=== PATIENT | male | born 1990 | race Two or more races ===

== ENCOUNTER 2017-04-21 19:19 | Emergency (ER) | payer MEDICAID ==
[~2017-04-21] VITALS: Ht 175.3 cm; Wt 83.9 kg
[2017-04-21 19:44] VITALS: BP 159/94
== END 2017-04-21 20:55 | disposition left against medical advice (07) ==
LOC: ER 19:24
DX: R36.9 Urethral discharge, unspecified (principal); Z53.21 Procedure and treatment not carried out due to patient leaving prior to being seen by health care provider

== ENCOUNTER 2021-04-28 14:03 | Inpatient (IN) | payer MEDICAID ==
[~2021-04-28] VITALS: Ht 175.3 cm; Wt 84.3 kg
[2021-04-28] MEDS ORDERED: cefTRIAXone 1GM/50ML D5W 50 ML IV ONE (14:30)
[2021-04-28] MEDS ORDERED: FUROSEMIDE 40 MG/4 ML VIAL IV ONE (14:30)
[2021-04-28] MEDS ORDERED: CLINDAMYCIN 600MG IV 50 ML IV ONE (14:30)
[2021-04-28 15:21] LABS: Hematocrit 52.7 % (41.0-53.0); Hemoglobin 17.6 g/dL (13.5-17.5); Mean Corpuscular Hemoglobin 31.7 pg (28.0-32.0); Mean Corpuscular Hgb Conc. 33.5 g/dL (32.0-36.0); Mean Corpuscular Volume 94.8 fL (80.0-100.0); Red Blood Cells 5.56 10^6/uL (4.5-5.90); Red Cell Distribution Width 17.5 % (11.8-14.3); White Blood Cell 13.2 10^3/uL (4.4-10.8)
[2021-04-28 15:27] LABS: Basophils % (manual) 0 (0.0-2.0); Blast Cells 0; Promyelocytes % 0; Reactive Lymphocytes 0
[2021-04-28 15:40] LABS: INR 1.38 (0.9-1.15); Partial Thromboplastin Time 30.8 sec (23.6-33.0)
[2021-04-28 16:44] LABS: Band Neutrophils % (manual) 6; Eosinophils % (manual) 1 (0-7); Lymphocytes % (manual) 8 (10.0-50.0); Metamyelocytes % 1; Monocytes % (manual) 11 (0-12); Myelocytes % 1
[2021-04-28 17:27] LABS: Albumin 2.1 g/dL (3.4-5.0); Calcium 7.9 mg/dL (8.5-10.1); Potassium 3.6 mmol/L (3.5-5.1)
[2021-04-28 17:30] LABS: BUN/Creatinine Ratio 15.6; Bilirubin, Total 4.3 mg/dL (0.2-1.0)
[2021-04-28] MEDS ORDERED: ACETAMINOPHEN 325 MG TAB PO PRN (21:15)
[2021-04-28] MEDS ORDERED: ONDANSETRON HCL 4 MG/2 ML VIAL IV PRN (21:15)
[2021-04-28] MEDS ORDERED: NITROGLYCERIN 0.4 MG SL TAB SL PRN (21:15)
[2021-04-28] MEDS ORDERED: HYDROcodone-ACET 5/325MG TAB PO PRN (21:15)
[2021-04-28] MEDS ORDERED: MORPHINE SULFATE INJECTION 2 MG/ML SYRG IV PRN (21:15)
[2021-04-28] MEDS ORDERED: CARVEDILOL 3.125 MG TAB PO SCH (22:00)
[2021-04-28] MEDS ORDERED: TEMAZEPAM 15 MG CAP PO PRN (22:00)
[2021-04-28] MEDS ORDERED: ATORVASTATIN 20 MG TAB PO SCH (22:00)
[2021-04-28] MEDS ORDERED: CLINDAMYCIN 600MG IV 50 ML IV SCH (22:00)
[2021-04-28] MEDS ORDERED: SACUBITRIL-VALSARTAN 24mg/26mg TAB PO SCH (22:00)
[2021-04-29] MEDS ORDERED: ONDANSETRON HCL 4 MG/2 ML VIAL IV PRN (01:45)
[2021-04-29 05:30] VITALS: BP 145/59
[2021-04-29] MEDS ORDERED: SACU1TAB PO (05:33)
[2021-04-29] MEDS ORDERED: FLUT1AER3 PO (05:33)
[2021-04-29] MEDS ORDERED: FURO40TA4 PO (05:51)
[2021-04-29] MEDS ORDERED: CARV3.1240 PO (05:51)
[2021-04-29] MEDS ORDERED: POTA8TAB2 PO (05:51)
[2021-04-29] MEDS ORDERED: FUROSEMIDE 40 MG TAB PO SCH (06:00)
[2021-04-29] MEDS: CLINDAMYCIN 900MG IV 50 ML IV SCH ×2 (06:30→13:36)
[2021-04-29 08:00] VITALS: BP 123/82
[2021-04-29] MEDS ORDERED: cefTRIAXone 1GM/50ML D5W 50 ML IV SCH (09:00)
[2021-04-29 09:08] LABS: Calcium 8.4 mg/dL (8.5-10.1); Potassium 3.6 mmol/L (3.5-5.1)
[2021-04-29] MEDS: CARVEDILOL 3.125 MG TAB PO SCH ×2 (09:35→22:10)
[2021-04-29] MEDS: ENOXAPARIN SOD 40 MG/0.4 ML SYRINGE SC SCH (09:36)
[2021-04-29] MEDS ORDERED: ENOXAPARIN SOD 40 MG/0.4 ML SYRINGE SC SCH (10:00)
[2021-04-29] MEDS ORDERED: levoFLOXacin 500MG 100 ML IV SCH (10:00)
[2021-04-29] MEDS ORDERED: LISINOPRIL 5 MG TAB PO SCH (10:00)
[2021-04-29] MEDS: FUROSEMIDE 40 MG/4 ML VIAL IV SCH ×2 (11:08→17:27)
[2021-04-29 12:00] VITALS: BP 113/77
[2021-04-29 16:00] VITALS: BP 100/54
[2021-04-29] MEDS: PENICILLIN G POTASSIUM 3,000,000 UNITS in D5W 5% 50 ML IV SCH ×2 (17:28→23:52)
[2021-04-29] MEDS ORDERED: HYDROcodone-ACET 5/325MG TAB PO PRN (21:15)
[2021-04-29] MEDS ORDERED: DOCUSATE SOD 100 MG CAP PO PRN (21:15)
[2021-04-29 22:00] VITALS: BP 100/64
[2021-04-29] MEDS: ATORVASTATIN 20 MG TAB PO SCH (22:09)
[2021-04-30] MEDS ORDERED: diphenhdrAMINE HCL 50 MG/1 ML VL IV ONE (01:30)
[2021-04-30 05:00] VITALS: BP 104/61
[2021-04-30 05:17] LABS: Basophils # (auto) 0.1 10 ^3/uL (0-0.2); Eosinophils # (auto) 0.1 10 ^3/uL (0-0.8); Eosinophils % (auto) 1.5 % (0.0-7.0); Hematocrit 45.7 % (41.0-53.0); Hemoglobin 15.5 g/dL (13.5-17.5); Lymphocytes # (auto) 1.2 10 ^3/uL (0.4-5.4); Lymphocytes % (auto) 11.8 % (10.0-50.0); Mean Corpuscular Hgb Conc. 33.8 g/dL (32.0-36.0); Mean Corpuscular Volume 94.7 fL (80.0-100.0); Monocytes # (auto) 0.8 10 ^3/uL (0-1.3); Monocytes % (auto) 8.1 % (0.0-12.0); Neutrophils # (auto) 7.8 10 ^3/uL (1.6-8.6); Neutrophils % (auto) 77.6 % (37.0-80.0); Nucleated Red Blood Cells % 0.1 %; Red Blood Cells 4.83 10^6/uL (4.5-5.90); Red Cell Distribution Width 17.4 % (11.8-14.3)
[2021-04-30] MEDS: PENICILLIN G POTASSIUM 3,000,000 UNITS in D5W 5% 50 ML IV SCH ×4 (06:00→23:56)
[2021-04-30] MEDS: FUROSEMIDE 40 MG/4 ML VIAL IV SCH ×2 (06:19→18:14)
[2021-04-30 09:00] VITALS: BP 114/68
[2021-04-30] MEDS: CARVEDILOL 3.125 MG TAB PO SCH ×2 (10:04→21:41)
[2021-04-30] MEDS: ENOXAPARIN SOD 40 MG/0.4 ML SYRINGE SC SCH (10:05)
[2021-04-30 11:43] LABS: Hepatitis A Ab IgM Negative; Hepatitis B Core IgM Negative; Hepatitis C Antibody Negative (Negative)
[2021-04-30 13:00] VITALS: BP 98/59
[2021-04-30 17:00] VITALS: BP 101/66
[2021-04-30 19:53] LABS: Alcohol, Urine < 3.0 mg/dL (0-10); Amphetamine Screen, Urine NEGATIVE (NEGATIVE); Barbiturate Scree,Urine NEGATIVE (NEGATIVE); Benzodiazephine Screen, Urine NEGATIVE (NEGATIVE); Cannabinoid Screen, Urine POSITIVE (NEGATIVE); Cocaine Screen, Urine NEGATIVE (NEGATIVE); Opiate Scree,Urine NEGATIVE (NEGATIVE); Phencyclidine Screen, Urine NEGATIVE (NEGATIVE)
[2021-04-30] MEDS: ATORVASTATIN 20 MG TAB PO SCH (21:41)
[2021-04-30 22:00] VITALS: BP 120/67
[2021-05-01 05:00] VITALS: BP 110/69
[2021-05-01] MEDS: FUROSEMIDE 40 MG/4 ML VIAL IV SCH (06:28)
[2021-05-01] MEDS: PENICILLIN G POTASSIUM 3,000,000 UNITS in D5W 5% 50 ML IV SCH ×2 (06:29→12:54)
[2021-05-01 09:00] VITALS: BP 120/76
[2021-05-01] MEDS: ENOXAPARIN SOD 40 MG/0.4 ML SYRINGE SC SCH (09:59)
[2021-05-01] MEDS: CARVEDILOL 3.125 MG TAB PO SCH (10:00)
[2021-05-01 13:00] VITALS: BP 100/52
[2021-05-01] MEDS ORDERED: AMOX500C2 PO (14:30)
[2021-05-01 15:27] VITALS: BP 120/76
== END 2021-05-01 18:23 | disposition home or self-care (01) | DRG 383 ==
LOC: ER 14:03 → OVERFLOW 21:04 → WEST WING 23:40 → TELE-WESTW 04-29 08:26
PROVIDERS: ADMIT Nurse Practitioner; ATTEND Internal Medicine
DX: L03.115 Cellulitis of right lower limb (principal); I50.21 Acute systolic (congestive) heart failure; I42.0 Dilated cardiomyopathy; E88.09 Other disorders of plasma-protein metabolism, not elsewhere classified; I11.0 Hypertensive heart disease with heart failure; F17.210 Nicotine dependence, cigarettes, uncomplicated; F19.90 Other psychoactive substance use, unspecified, uncomplicated; Z20.822 Contact with and (suspected) exposure to COVID-19; J44.9 Chronic obstructive pulmonary disease, unspecified; Z91.19 Patient's noncompliance with other medical treatment and regimen; Z95.810 Presence of automatic (implantable) cardiac defibrillator; Z71.6 Tobacco abuse counseling
CPT/HCPCS: 36415; 71045; 73700; 80048; 80053; 80074; 80307; 83605; 83880; 84484; 85007; 85025; 85027; 85610; 85730; 87040; 87081; 87426; 93005; 93926; 93971; 96365; 96368; 96375; G0378; J0696; J1956; J2405; J3490; J7060

== ENCOUNTER 2024-12-13 17:00 | Inpatient (IN) | payer MEDICAID ==
[~2024-12-13] VITALS: Ht 175.3 cm; Wt 113.0 kg
[~2024-12-13 17:00] MED LIST: AMOX500C2 PO; CARV3.1240 PO; FLUT1AER3 PO; FURO40TA4 PO; POTA8TAB38 PO; SACU1TAB PO
[2024-12-13 17:36] LABS: Hematocrit 45.0 % (41.0-53.0); Hemoglobin 15.2 g/dL (13.5-17.5); Mean Corpuscular Hemoglobin 31.3 pg (28.0-32.0); Mean Corpuscular Volume 92.7 fL (80.0-100.0); Nucleated Red Blood Cells % 0.3 %
[2024-12-13 17:47] LABS: Chloride 102 mmol/L (98-107); Sodium 138 mmol/L (136-145)
[2024-12-13 17:48] LABS: Anion Gap 13 (5-15); Carbon Dioxide 23 mmol/L (20-31); Potassium 3.0 mmol/L (3.5-5.1)
[2024-12-13 17:49] LABS: Calcium 9.0 mg/dL (8.7-10.4)
[2024-12-13 17:54] LABS: BUN/Creatinine Ratio 11.8 (10.0-20.0); Blood Urea Nitrogen 13 mg/dL (9-23)
--- NOTE | 2024-12-13 17:57 | DVH ---
CHEST RADIOGRAPH Indication: sob Technique: Single frontal view of the chest was obtained COMPARISON: CHEST PORTABLE on DOS: 04/28/21 FINDINGS: Lines and Tubes: Left chest AICD Lungs: Congestion Pleura: No effusion. No pneumothorax. Cardiomediastinal contours: Cardiomegaly Bones: Unremarkable IMPRESSION: Increased interstital prominence. This may represent pulmonary vascular congestion and/or viral pneum onia. Clinical correlation advised.
[2024-12-13 18:14] LABS: Glucose 138 mg/dL (74-106)
[2024-12-13 18:40] LABS: Albumin 3.8 g/dL (3.2-4.8); Total Protein 7.2 g/dL (5.7-8.2)
[2024-12-13 18:44] LABS: Alanine Aminotransferase 48.0 U/L (7-40); Alkaline Phosphatase 298.0 U/L (46-116); Bilirubin, Direct 2.1 mg/dL (<0.3); Bilirubin, Total 3.5 mg/dL (0.2-1.0); Magnesium 1.4 mg/dL (1.6-2.6)
--- NOTE | 2024-12-13 19:16 | ED.PDOC ---
HPI Comments This is a 34-year-old male with past medical history of HFrEF (drug-induced, status post ICD), came to the hospital due to generalized body swelling. Per patient, he has not been taking his medicine for 2 months and gradually has developed bilateral lower limb and abdominal distention. He also reports shortness of breaths, chest discomfort, and inability to pass urine for 2 days. He denies fever, cough, nausea, vomiting, or any bowel habit changes. Home meds: Lasix, Entresto, Jardiance, carvedilol, and aspirin. Per patient he has not been taking has been since 2 months. Social: Smokes weed, cocaine and methamphetamine Chief Complaint: General Weakness Time Seen by MD: 17:27 Primary Care Provider: SHAY Malone Notes: Nurses Notes Allergies: Coded Allergies: NO KNOWN ALLERGIES (Unverified , 04/21/17) Home Meds Active Scripts Amoxicillin Trihydrate (Amoxicillin) 500 Mg Cap, 500 MG PO TID for 5 Days, #15 CAP Prov:PATRICIA MORATAYA MD 05/01/21 Reported Medications Carvedilol (Carvedilol) 3.125 Mg Tab, 1 TAB PO BID 04/29/21 Potassium Chloride (Klor-Con 8) 8 Meq Tab, 1 TAB PO BID 04/29/21 Furosemide (Furosemide) 40 Mg Tab, 1 TAB PO BID 04/29/21 Myzfphxzwdi-Imqpicdqwpjp-Civbh (Trelegy Ellipta 100-62.5-25 Mcg/INH) 1 Aer Aer, 1 PUFF PO DAILYPRN 04/29/21 Sacubitril-Valsartan (Entresto 24-26 mg) 1 Tab Tab, 1 TAB PO BID 04/29/21 Mode of Arrival: Ambulatory Past Medical History PAST MEDICAL HISTORY: CHF, HTN Surgical History: Unknown Family History Family History: Reviewed,noncontributory to illness Social History Smoker: Cigarettes Alcohol: Occasionally Drugs: Marijuana, Other Lives In: Unknown Constitutional: denies: chills, diaphoresis, fatigue, fever, malaise, sweats, weakness, others EENTM: denies: blurred vision, double vision, ear bleeding, ear discharge, ear drainage, ear pain, ear ringing, eye pain, eye redness, hearing loss, mouth pain, mouth swelling, nasal discharge, nose bleeding, nose congestion, nose pain, photophobia, tearing, throat pain, throat swelling, voice changes, others Respiratory: reports: shortness of breath; denies: cough, hemoptysis, orthopnea, SOB at rest, SOB with excertion, stridor, wheezing, others Cardiovascular: denies: chest pain, dizzy spells, diaphoresis, Dyspnea on exertion, edema, irregular heart beat, left arm pain, lightheadedness, palpitations, PND, syncope, others Gastrointestinal: reports: abdomen distended; denies: abdominal pain, blood streaked bowels, constipated, diarrhea, dysphagia, difficulty swallowing, hematemesis, melena, nausea, poor appetite, poor fluid intake, rectal bleeding, rectal pain, vomiting, others Genitourinary: reports: others; denies: burning, dysuria, flank pain, frequency, hematuria, incontinence, penile discharge, penile sore, pain, testicle pain, testicle swelling, urgency Neurological: denies: dizziness, fainting, headache, left sided numbness, left sided weakness, numbness, paresthesia, pre-existing deficit, right sided numbness, right sided weakness, seizure, speech problems, tingling, tremors, weakness, others Musculoskeletal: denies: back pain, gout, joint pain, joint swelling, muscle pain, muscle stiffness, neck pain, others Integumetry: denies: bruises, change in color, change in hair/nails, dryness, laceration, lesions, lumps, rash, wounds, others Allergic/Immunocompromised: denies: Difficulty Healing, Frequent Infections, Hives, Itching, others Hematologic/Lymphatic: denies: anemia, blood clots, easy bleeding, easy bruising, swollen glands, others Endocrine: denies: excessive hunger, excessive sweating, excessive thirst, excessive urination, flushing, intolerance to cold, intolerance to heat, unexplained weight gain, unexplained weight loss, others Psychiatric: denies: anxiety, bipolar disorder, depression, hopeless, panic disorder, schizophrenia, sleepless, suicidal, others Physical Exam General Appearance: No Apparent Distress, Normal HEENT: Normal ENT Inspection, Pharynx Normal, TMs Normal Neck: Full Range of Motion, Non-Tender, Normal, Normal Inspection Respiratory: Chest Non-Tender, Lungs Clear, No Accessory Muscle Use, No Respiratory Distress, Normal Breath Sounds Cardiovascular: No Edema, No JVD, No Murmur, No Gallop, Normal Peripheral Pulses, Regular Rate/Rhythm Breast Exam: Deferred Gastrointestinal: No Organomegaly, Non Tender, No Pulsatile Mass, Normal Bowel Sounds, Soft Genitalia: Deferred Pelvic: Deferred Rectal: Deferred Extremities: Leg edema, Normal capillary refill, Normal inspection, Normal range of motion, Non-tender, No pedal edema Musculoskeletal : Apperance: Normal 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 Was a procedure done?: No CP Differential Dx Differential Diagnosis: Other Differential Diagnosis: CHF X-Ray, Labs, Meds, VS Vital Signs Date Time Temp Pulse Resp B/P (MAP) Pulse Ox O2 Delivery O2 Flow Rate FiO2 12/13/24 17:03 97.5 104 20 129/93 96 97.5 Lab Test 12/13/24 18:24 12/13/24 17:25 Range/Units Troponin I High Sensitivity Pending 163 *H </=54 ng/L White Blood Count 6.9 4.4-10.8 10^3/uL Red Blood Count 4.86 4.5-5.90 10^6/uL Hemoglobin 15.2 13.5-17.5 g/dL Hematocrit 45.0 41.0-53.0 % Mean Corpuscular Volume 92.7 80.0-100.0 fL Mean Corpuscular Hemoglobin 31.3 28.0-32.0 pg Mean Corpuscular Hemoglobin Concent 33.8 32.0-36.0 g/dL Red Cell Distribution Width 16.6 H 11.8-14.3 % Platelet Count 237 140-450 10^3/uL Mean Platelet Volume 8.1 6.9-10.8 fL Neutrophils (%) (Auto) 66.0 37.0-80.0 % Lymphocytes (%) (Auto) 20.4 10.0-50.0 % Monocytes (%) (Auto) 9.0 0.0-12.0 % Eosinophils (%) (Auto) 2.8 0.0-7.0 % Basophils (%) (Auto) 1.8 0.0-2.0 % Neutrophils # (Auto) 4.6 1.6-8.6 10 ^3/uL Lymphocytes # (Auto) 1.4 0.4-5.4 10 ^3/uL Monocytes # (Auto) 0.6 0-1.3 10 ^3/uL Eosinophils # (Auto) 0.2 0-0.8 10 ^3/uL Basophils # (Auto) 0.1 0-0.2 10 ^3/uL Nucleated Red Blood Cells 0.3 % Sodium Level 138 136-145 mmol/L Potassium Level 3.0 L 3.5-5.1 mmol/L Chloride Level 102 98-107 mmol/L Carbon Dioxide Level 23 20-31 mmol/L Anion Gap 13 5-15 Blood Urea Nitrogen 13 9-23 mg/dL Creatinine 1.10 0.700-1.30 mg/dL Glomerular Filtration Rate Calc 90 >90 mL/min BUN/Creatinine Ratio 11.8 10.0-20.0 Serum Glucose 138 H 74-106 mg/dL Calcium Level 9.0 8.7-10.4 mg/dL Magnesium Level 1.4 L 1.6-2.6 mg/dL Total Bilirubin 3.5 H 0.2-1.0 mg/dL Direct Bilirubin 2.1 H <0.3 mg/dL Aspartate Amino Transferase (AST) 75 H 13-40 U/L Alanine Aminotransferase (ALT) 48 H 7-40 U/L Alkaline Phosphatase 298 H 46-116 U/L B-Type Natriuretic Peptide 1001.41 0-100 pg/mL Total Protein 7.2 5.7-8.2 g/dL Albumin 3.8 3.2-4.8 g/dL Time of 1ST Reevaluation: 19:13 Reevaluation 1ST: Unchanged Patient Education/Counseling: Diagnosis, Treatment, Prognosis, Need For Follow Up Family Education/Counseling: Diagnosis, Treatment, Prognosis, Need For Follow Up Comments Patient came to the hospital due to chest discomfort. Patient was vitally stable. Patient has generalized edema including abdominal distention and grade 3-4 pedal edema. Chest x-ray showed cardiomegaly with pulmonary vascular congestion Patient had hypokalemia and hypoglycemia, repleted Patient also has raised LFT Patient was given IV Lasix 60 mg Troponin I is raised On subsequent checkup patient was feeling the same, patient will be admitted in hospital for further management. SEPSIS Sepsis Screen Date sepsis recognized/suspect: Dec 13, 2024 Time Sepsis recognized/suspect: 1706 Recent Procedure: No On Antibiotic Therapy: No Respiratory Rate >20: No Heart Rate >90: Yes Temp<36 C (96.8 F) or >38.3 C: No SBP <90 or MAP <65 mmHG: No New Acute Mental Status Change: No Is the patient on CPAP, BIPAP,: No Physician Orders Troponin-I Hs (12/13/24 17:12) Urinalysis (12/13/24 17:12) Chest Portable (12/13/24 17:12) Electrocardigram (12/13/24 17:12) Troponin-I Hs (12/13/24 20:12) Electrocardigram (12/13/24 18:12) Electrocardigram (12/13/24 20:12) Drug Screen (12/13/24 17:56) House Catheters (12/13/24 ) Vital Signs Date Time Temp Pulse Resp B/P (MAP) Pulse Ox O2 Delivery O2 Flow Rate FiO2 12/13/24 17:03 97.5 104 20 129/93 96 97.5 Laboratory Tests Test 12/13/24 17:25 White Blood Count 6.9 10^3/uL (4.4-10.8) Departure 1 Departure Time of Disposition: 19:15 Impression: Primary Impression: CHF (congestive heart failure) Additional Impressions: Drug abuse and dependence Non-compliance Disposition: ADMITTED INPATIENT Admit to: [facility] Condition: Serious Critical Care Note Critical Care Time?: Yes (45 min-critical care time only) Stability Stability form required: No Heart Score Heart Score: Heart Score Response (Comments) Value History Slightly Suspicious 0 EKG N/A 0 Age <45 0 Risk Factors 1 or 2 risk factors 1 Troponin >3 x's Normal limit 2 Total 3 LUCIOWILFRIDLUCIOTALON RESDIENT Dec 13, 2024 19:16
[2024-12-13] MEDS: FUROSEMIDE 100 MG/10ML VIAL IV ONE (19:20)
--- NOTE | 2024-12-13 19:41 | DVH ---
ULTRASOUND ABDOMEN limited, 4 QUADRANTS INDICATION: ascitis Evaluate for ascites. TECHNIQUE: The four quadrants of the abdomen were scanned in calderon-scale to assess for the presence of ascites. N o solid organ assessment was performed. FINDINGS/IMPRESSIONS: Trace of ascites near the liver.
--- NOTE | 2024-12-13 19:45 | DVH ---
CLINICAL HISTORY: edema TECHNIQUE: Color and duplex doppler imagine of the bilateral lower extremity veins was performed. Ves rupinder compression and augmentation if possible was also performed. COMPARISON: RT LOWER DVT on DOS: 04/28/21 FINDINGS: Right Lower Extremity: Right common femoral vein: Normal compressibility and flow. Right superficial femoral vein: Normal compressibility and flow. Right popliteal vein: Normal compressibility and flow. Proximal calf veins demonstrate flow. Left Lower Extremity: Left common femoral vein: Normal compressibility and flow. Left superficial femoral vein: Normal compressibility and flow. Left popliteal vein: Normal compressibility and flow. Proximal calf veins demonstrate flow. IMPRESSION: NO SONOGRAPHIC EVIDENCE FOR DEEP VENOUS THROMBOSIS IN THE BILATERAL LOWER EXTREMITY VEINS.
[2024-12-13] MEDS ORDERED: MORPHINE SULFATE INJ 2 MG/ml SYRG IV PRN (20:00)
[2024-12-13] MEDS ORDERED: NITROGLYCERIN 0.4 MG SL TAB SL PRN (20:00)
--- NOTE | 2024-12-13 20:01 | DVHHP2 ---
History of Present Illness Reason for Visit: Shortness for breath History of Present Illness 34-year-old male presents for evaluation of shortness for breath. Patient with drug-induced cardiomyopathy presents with complaints of shortness for breath. Patient reports not being able to have his medications refilled for the past two months. He presents with worsening shortness for breath, abdominal swelling and bilateral lower extremity edema. Also reports chest pressure. No cough or fever. No other acute complaints reported. Past Medical History Hypertension, congestive heart failure, dyslipidemia Past Surgical History Denies Family History Noncontributory Smoke: <1 pack per day ALCOHOL: occassional Drugs: Marijuana, Other (Amphetamines) Lives: with Family Review of Systems Review of Systems Review of systems are currently negative otherwise addressed in HPI. Allergies: Coded Allergies: NO KNOWN ALLERGIES (Unverified , 04/21/17) Medications Current Medications Medications Dose Ordered Sig/Yue Route Start Time Stop Time Status Last Admin Dose Admin Magnesium Sulfate/ Dextrose 100 ml @ 100 mls/hr Q1H IV 12/13/24 19:45 12/13/24 21:44 Potassium Chloride 100 ml @ 50 mls/hr Q2H IV 12/13/24 19:45 12/13/24 23:44 Exam Vital Signs Vital Signs Date Time Temp Pulse Resp B/P (MAP) Pulse Ox O2 Delivery O2 Flow Rate FiO2 12/13/24 19:20 132/91 12/13/24 19:19 88 18 12/13/24 17:03 97.5 96 97.5 Exam Gen: 34-year-old male in mild distress Skin: Warm, dry, normal color and texture, no rash. HEENT: Normocephalic atraumatic, mucous membranes moist and pink. Neck: Cervical and supraclavicular nodes normal without enlargement, trachea is midline, thyroid gland is normal without masses. Pulmonary: Clear to auscultation and percussion bilaterally. Cardiac: Regular rate and rhythm. No murmur Abdomen: Soft, nontender, nondistended, bowel sounds present all 4 quadrants, no guarding, no rigidity, no organomegaly. Extremities: No cyanosis, clubbing, plus two bilateral pedal edema Neuro: Cranial nerves II through XII grossly intact, normal affect and speech, no focal motor deficits. Labs/Xrays ORDERING PHYSICIAN: CARMEN MEAD MD PROCEDURE(s): CXRP - CHEST PORTABLE REASON: sob ORDER NUMBER(s): [id number], ACCESSION NUMBER(s): [id number] CHEST RADIOGRAPH Indication: sob Technique: Single frontal view of the chest was obtained COMPARISON: CHEST PORTABLE on DOS: 04/28/21 FINDINGS: Lines and Tubes: Left chest AICD Lungs: Congestion Pleura: No effusion. No pneumothorax. Cardiomediastinal contours: Cardiomegaly Bones: Unremarkable IMPRESSION: Increased interstital prominence. This may represent pulmonary vascular congestion and/or viral pneumonia. Clinical correlation advised. Labs Test 12/13/24 18:24 12/13/24 17:25 Range/Units Troponin I High Sensitivity 160 *H </=54 ng/L White Blood Count 6.9 4.4-10.8 10^3/uL Red Blood Count 4.86 4.5-5.90 10^6/uL Hemoglobin 15.2 13.5-17.5 g/dL Hematocrit 45.0 41.0-53.0 % Mean Corpuscular Volume 92.7 80.0-100.0 fL Mean Corpuscular Hemoglobin 31.3 28.0-32.0 pg Mean Corpuscular Hemoglobin Concent 33.8 32.0-36.0 g/dL Red Cell Distribution Width 16.6 H 11.8-14.3 % Platelet Count 237 140-450 10^3/uL Mean Platelet Volume 8.1 6.9-10.8 fL Neutrophils (%) (Auto) 66.0 37.0-80.0 % Lymphocytes (%) (Auto) 20.4 10.0-50.0 % Monocytes (%) (Auto) 9.0 0.0-12.0 % Eosinophils (%) (Auto) 2.8 0.0-7.0 % Basophils (%) (Auto) 1.8 0.0-2.0 % Neutrophils # (Auto) 4.6 1.6-8.6 10 ^3/uL Lymphocytes # (Auto) 1.4 0.4-5.4 10 ^3/uL Monocytes # (Auto) 0.6 0-1.3 10 ^3/uL Eosinophils # (Auto) 0.2 0-0.8 10 ^3/uL Basophils # (Auto) 0.1 0-0.2 10 ^3/uL Nucleated Red Blood Cells 0.3 % Sodium Level 138 136-145 mmol/L Potassium Level 3.0 L 3.5-5.1 mmol/L Chloride Level 102 98-107 mmol/L Carbon Dioxide Level 23 20-31 mmol/L Anion Gap 13 5-15 Blood Urea Nitrogen 13 9-23 mg/dL Creatinine 1.10 0.700-1.30 mg/dL Glomerular Filtration Rate Calc 90 >90 mL/min BUN/Creatinine Ratio 11.8 10.0-20.0 Serum Glucose 138 H 74-106 mg/dL Calcium Level 9.0 8.7-10.4 mg/dL Magnesium Level 1.4 L 1.6-2.6 mg/dL Total Bilirubin 3.5 H 0.2-1.0 mg/dL Direct Bilirubin 2.1 H <0.3 mg/dL Aspartate Amino Transferase (AST) 75 H 13-40 U/L Alanine Aminotransferase (ALT) 48 H 7-40 U/L Alkaline Phosphatase 298 H 46-116 U/L B-Type Natriuretic Peptide 1001.41 0-100 pg/mL Total Protein 7.2 5.7-8.2 g/dL Albumin 3.8 3.2-4.8 g/dL SEPSIS Sepsis Screen Date sepsis recognized/suspect: Dec 13, 2024 Time Sepsis recognized/suspect: 1705 Recent Procedure: No On Antibiotic Therapy: No Respiratory Rate >20: No Heart Rate >90: Yes Temp<36 C (96.8 F) or >38.3 C: No SBP <90 or MAP <65 mmHG: No New Acute Mental Status Change: No Is the patient on CPAP, BIPAP,: No Physician Orders Urinalysis (12/13/24 17:12) Chest Portable (12/13/24 17:12) Electrocardigram (12/13/24 17:12) Troponin-I Hs (12/13/24 20:12) Electrocardigram (12/13/24 18:12) Electrocardigram (12/13/24 20:12) Drug Screen (12/13/24 17:56) House Catheters (12/13/24 ) Abdomen Limited (12/13/24 19:16) Bilat Lower Dvt (12/13/24 19:17) Magnesium Sulfate 1gm/100ml (12/13/24 19:45) Potassium Chl 20meq/100ml (12/13/24 19:45) Vital Signs Date Time Temp Pulse Resp B/P (MAP) Pulse Ox O2 Delivery O2 Flow Rate FiO2 12/13/24 19:20 132/91 12/13/24 19:19 88 18 132/99 (110) 12/13/24 17:03 97.5 104 20 129/93 96 97.5 Laboratory Tests Test 12/13/24 17:25 White Blood Count 6.9 10^3/uL (4.4-10.8) Medications Medications Dose Ordered Sig/Yue Route Start Time Stop Time Status Last Admin Dose Admin Furosemide 60 mg ONCE ONCE IV 12/13/24 18:00 12/13/24 18:01 DC 12/13/24 19:20 60 MG Assessment/Plan Assessment/Plan Assessment Acute on chronic congestive heart failure Electrolyte imbalance Transaminitis, ? Venous congestion,? Drug-induced Amphetamine abuse Noncompliant Plan Admit the patient to telemetry to the hospitalist IV Lasix Resume home medications Echocardiogram pending Continue treatment per orders. Plan discussed with: Patient Date of Service: Dec 13, 2024 Billing Provider: CIRILO VALERIO Common Visit Codes: [id number] INP/OBS CARE (HIGH) CIRILO VALERIO Dec 13, 2024 20:01
[2024-12-13] MEDS: POTASSIUM CHL 20 Meq TABLET PO ONE (20:17)
[2024-12-13] MEDS: ATORVASTATIN 20 MG TAB PO ONE (20:17)
[2024-12-13] MEDS: MAGNESIUM SULFATE 1GM/100ML 100 ML IV SCH (20:17)
[2024-12-13] MEDS: POTASSIUM CHL 20MEQ/100ML 100 ML IV SCH (20:33)
[2024-12-13] MEDS: SACUBITRIL-VALSARTAN 24mg/26mg TAB PO SCH (22:00)
[2024-12-13] MEDS: CARVEDILOL 3.125 MG TAB PO SCH (22:19)
[2024-12-13 22:43] LABS: Urine Protein, UAD Negative (Negative)
[2024-12-13 22:54] LABS: Cannabinoid Screen, Urine Pos (NEGATIVE)
[2024-12-13 22:56] VITALS: BP 145/100; PULSE 91; RESP 20; TEMP 96.2; O2SAT 97
[2024-12-13 23:02] LABS: Amphetamine Screen, Urine Pos (NEGATIVE); Barbiturate Scree,Urine Neg (NEGATIVE); Benzodiazephine Screen, Urine Neg (NEGATIVE); Cocaine Screen, Urine Neg (NEGATIVE); Opiate Scree,Urine Neg (NEGATIVE); Phencyclidine Screen, Urine Neg (NEGATIVE)
[2024-12-14] VITALS (7 sets, daily range): BP systolic 100–124; BP diastolic 63–83; PULSE 64–94; RESP 16–20; TEMP 96.4–98.3; O2SAT 95–100
[2024-12-14] MEDS: TEMAZEPAM 15 MG CAP PO PRN (01:50)
[2024-12-14] MEDS: FUROSEMIDE 40 MG/4 ML VIAL IV SCH (05:47)
[2024-12-14] MEDS: EMPAGLIFLOZIN 10 MG TAB PO SCH (10:14)
--- NOTE | 2024-12-14 12:06 | DVHPN2 ---
Reviewed: Care Plan, H&P, Labs, Medications, Previous Orders, Radiology Changes from previous H/P or p: No Changes Objective Vitals Vital Signs Date Time Temp Pulse Resp B/P (MAP) Pulse Ox O2 Delivery O2 Flow Rate FiO2 12/14/24 10:16 75 125/97 12/14/24 09:00 96.4 20 95 96.4 12/14/24 08:00 Nasal Cannula* 2 28 Intake/Output Intake and Output 12/14/24 07:00 Intake Total 450 ml Output Total 400 ml Balance 50 ml Intake Oral 350 ml IV Total 100 ml Output Urine Total 400 ml Medications Current Medications Medications Dose Ordered Sig/Yue Route Start Time Stop Time Status Last Admin Dose Admin Sacubitril/ Valsartan 1 tab BID PO 12/13/24 22:00 12/14/24 10:14 1 TAB Furosemide 40 mg BIDD IV 12/14/24 06:00 12/14/24 05:47 40 MG Empaglifozin 10 mg DAILY PO 12/14/24 10:00 12/14/24 10:14 10 MG Carvedilol 3.125 mg Q12HR PO 12/13/24 22:00 12/14/24 10:16 3.125 MG Aspirin 81 mg DAILY PO 12/14/24 10:00 12/14/24 10:16 81 MG Temazepam 15 mg QHSP PRN PO 12/13/24 20:00 12/14/24 01:50 15 MG Ondansetron HCl 4 mg Q4HP PRN IV 12/13/24 20:00 Nitroglycerin 0.4 mg Q5MINP PRN SL 12/13/24 20:00 Morphine Sulfate 2 mg Q30M PRN IV 12/13/24 20:00 Laboratory Results Laboratory Tests 12/13/24 17:25 Chemistry Test 12/13/24 17:25 Albumin 3.8 g/dL (3.2-4.8) Calcium Level 9.0 mg/dL (8.7-10.4) Magnesium Level 1.4 mg/dL (1.6-2.6) L Total Protein 7.2 g/dL (5.7-8.2) Cardiac Markers Test 12/13/24 17:25 B-Type Natriuretic Peptide 1001.41 pg/mL (0-100) LFT Test 12/13/24 17:25 Alanine Aminotransferase (ALT) 48 U/L (7-40) H Alkaline Phosphatase 298 U/L (46-116) H Aspartate Amino Transferase (AST) 75 U/L (13-40) H Direct Bilirubin 2.1 mg/dL (<0.3) H Total Bilirubin 3.5 mg/dL (0.2-1.0) H Urinalysis Test 12/13/24 22:05 Urine Color Colorless (Yellow) Urine Clarity Clear (Clear) Urine pH 5.5 (5.0-9.0) Urine Specific [place] 1.006 (1.001-1.035) Urine Protein Negative (Negative) Urine Ketones Negative (Negative) Urine Blood Negative /uL (Negative) Urine Nitrite Negative (Negative) Urine Bilirubin Negative (Negative) Urine Urobilinogen Normal mg/dL (Negative) Urine Leukocyte Esterase Negative /uL (Negative) Urine RBC None seen /hpf (0 - 3) Urine Microscopic WBC 1 /HPF (0-3) Urine Squamous Epithelial Cells None seen /hpf (<5) Urine Bacteria None seen /hpf (None Seen) Urine Glucose Normal mg/dL (Normal) Labs and/or images reviewed: Labs reviewed by me, Image(s) reviewed by me Assessment/Plan Assessment/Plan Acute hypoxic respiratory failure: Oxygen by nasal cannula Acute on chronic congestive heart failure exacerbation, Lasix Jardiance Entresto Coreg Electrolyte imbalance Transaminitis, ? Venous congestion,? Drug-induced Amphetamine abuse Noncompliance: Patient has not been using any medications for the last 2 months Drug Induced cardiomyopathy Plan discussed with: Patient Date of Service: Dec 14, 2024 Billing Provider: RENU MONTERO MD Common Visit Codes: [id number] INP/OBS CARE(HIGH) RENU MONTERO MD Dec 14, 2024 12:06
[2024-12-14] MEDS: ONDANSETRON HCL 4 MG/2 ML VIAL IV PRN (12:33)
[2024-12-14] MEDS: NALOXONE HCL 0.4 MG/ML VIAL ONE ×3 (13:21→13:23)
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
[2024-12-14 14:11] LABS: Hematocrit 42.4 % (41.0-53.0); Hemoglobin 13.9 g/dL (13.5-17.5); Mean Corpuscular Hemoglobin 30.2 pg (28.0-32.0); Mean Corpuscular Volume 92.0 fL (80.0-100.0); Nucleated Red Blood Cells % 0.1 %
[2024-12-14 14:26] LABS: Albumin 3.4 g/dL (3.2-4.8); Anion Gap 11 (5-15); BUN/Creatinine Ratio 19.8 (10.0-20.0); Blood Urea Nitrogen 19 mg/dL (9-23); Carbon Dioxide 25 mmol/L (20-31); Chloride 100 mmol/L (98-107); Sodium 136 mmol/L (136-145); Total Protein 6.6 g/dL (5.7-8.2); Triglycerides 55 mg/dL (< 150)
[2024-12-14 14:27] LABS: Cholesterol 81 mg/dL (< 200)
[2024-12-14 14:28] LABS: Alanine Aminotransferase 55 U/L (7-40); Alkaline Phosphatase 268 U/L (46-116); Bilirubin, Total 3.8 mg/dL (0.2-1.0); Calcium 8.1 mg/dL (8.7-10.4); Glucose 147 mg/dL (74-106); HDL Cholesterol 14 mg/dL (40-59); Magnesium 1.4 mg/dL (1.6-2.6); Potassium 3.1 mmol/L (3.5-5.1)
[2024-12-14] MEDS: MAGNESIUM SULFATE 1GM/100ML 100 ML IV SCH (16:14)
[2024-12-14] MEDS: POTASSIUM EFFERVESENT TAB 25 MEQ PO ONE (16:15)
[2024-12-14 18:02] LABS: Base Excess 1.4 mmol/L (-2.0-3.0)
[2024-12-14] MEDS: LACTULOSE 20Gm/30ML SOLN PO ONE (18:32)
--- NOTE | 2024-12-14 21:31 | DVHSR ---
APPROVED REPORT EXAM: Two-dimensional and M-mode echocardiogram with Doppler and color Doppler. Blood Pressure: 124/74 mmHg INDICATION EF Surgery/Intervention Pacemaker: RISK [employer]CTORS Height: 5' 9", Weight: 259 DIMENSIONS LVDd6.8 (3.8-5.7cm)LA (2D)4.7 (1.9-4.0cm)Aortic Root3.4 (2.0-3.7cm) LVDs6.3 (2.5-4.0cm)LA (MM) (1.9-4.0cm)Aortic Cusp Exc2.0 (1.5-2.0cm) EF (%) 25.0 (55-70%)Rt. Atrium5.5 (1.9-4.0cm)Asc. Aorta cm IVSd1.2 (0.7-1.1cm)RV (D)3.0 (1.8-2.4cm) PWd1.1 (0.7-1.1cm) Mitral Valve MitralMitral Stenosis E wave1.20m/sMV Mean GR.mmHg A wave0.70m/sMV Peak GR.mmHg E/A ratio1.72D MVAcm2 Aortic Valve Aortic ValveAortic Stenosis V10.30m/Meek Mean GR.3mmHg V21.00m/Meek Peak GR.5mmHg LVOT Diameter2.4 (1.8-2.4cm)Doppler AVA1.36cm2 Pulmonic Valve V20.30m/s Tricuspid Valve TR Velocity2.00m/s [id number] Conclusion DILATED ALL CARDIAC CHAMBERS SEVERE HYPOKINESIS OF ALL CARDIAC CHAMBERS LV EF IS ONLY 15% NORMAL VALVES NO EFFUSION IT IS END STAGE DILATED CARDIOMYOPATHY
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
[2024-12-15] VITALS (8 sets, daily range): BP systolic 98–133; BP diastolic 68–83; PULSE 47–99; RESP 16–20; TEMP 96.5–98; O2SAT 94–99
[2024-12-15 07:35] LABS: Hematocrit 46.8 % (41.0-53.0); Hemoglobin 15.5 g/dL (13.5-17.5); Mean Corpuscular Hemoglobin 30.7 pg (28.0-32.0); Mean Corpuscular Volume 92.9 fL (80.0-100.0); Nucleated Red Blood Cells % 0.1 %
[2024-12-15 08:00] LABS: Chloride 101 mmol/L (98-107); Sodium 139 mmol/L (136-145)
[2024-12-15 08:04] LABS: Potassium 3.1 mmol/L (3.5-5.1)
[2024-12-15 08:26] LABS: Anion Gap 13 (5-15); Carbon Dioxide 25 mmol/L (20-31)
[2024-12-15 08:32] LABS: Calcium 8.3 mg/dL (8.7-10.4)
[2024-12-15 08:33] LABS: BUN/Creatinine Ratio 14.6 (10.0-20.0); Blood Urea Nitrogen 15 mg/dL (9-23); Glucose 100 mg/dL (74-106)
[2024-12-15 08:34] LABS: Magnesium 1.7 mg/dL (1.6-2.6)
[2024-12-15] MEDS: SPIRONOLACTONE 25 MG TAB PO SCH (08:56)
--- NOTE | 2024-12-15 12:07 | DVHPN2 ---
Reviewed: Care Plan, H&P, Labs, Medications, Previous Orders, Radiology Changes from previous H/P or p: No Changes Objective Vitals Vital Signs Date Time Temp Pulse Resp B/P (MAP) Pulse Ox O2 Delivery O2 Flow Rate FiO2 12/15/24 09:00 96.5 74 18 114/74 (87) 98 96.5 12/15/24 07:57 Room Air* 0 21 Intake/Output Intake and Output 12/15/24 07:00 Intake Total 1280 ml Output Total 1450 ml Balance -170 ml Intake Oral 1180 ml IV Total 100 ml Output Urine Total 1450 ml Medications Current Medications Medications Dose Ordered Sig/Yue Route Start Time Stop Time Status Last Admin Dose Admin Sacubitril/ Valsartan 1 tab BID PO 12/13/24 22:00 12/15/24 08:53 1 TAB Furosemide 40 mg BIDD IV 12/14/24 06:00 12/15/24 05:26 40 MG Empaglifozin 10 mg DAILY PO 12/14/24 10:00 12/15/24 08:53 10 MG Carvedilol 3.125 mg Q12HR PO 12/13/24 22:00 12/15/24 08:56 3.125 MG Aspirin 81 mg DAILY PO 12/14/24 10:00 12/15/24 08:53 81 MG Temazepam 15 mg QHSP PRN PO 12/13/24 20:00 12/14/24 01:50 15 MG Ondansetron HCl 4 mg Q4HP PRN IV 12/13/24 20:00 12/14/24 12:33 4 MG Nitroglycerin 0.4 mg Q5MINP PRN SL 12/13/24 20:00 Morphine Sulfate 2 mg Q30M PRN IV 12/13/24 20:00 Spironolactone 25 mg DAILY PO 12/15/24 10:00 12/15/24 08:56 25 MG Laboratory Results Laboratory Tests 12/15/24 06:43 Chemistry Test 12/14/24 13:37 12/15/24 06:43 Albumin 3.4 g/dL (3.2-4.8) Calcium Level 8.1 mg/dL (8.7-10.4) L 8.3 mg/dL (8.7-10.4) L Magnesium Level 1.4 mg/dL (1.6-2.6) L 1.7 mg/dL (1.6-2.6) Total Protein 6.6 g/dL (5.7-8.2) Lipid panel Test 12/14/24 13:37 Cholesterol Level 81 mg/dL (< 200) HDL Cholesterol 14 mg/dL (40-59) L Triglycerides Level 55 mg/dL (< 150) LFT Test 12/14/24 13:37 Alanine Aminotransferase (ALT) 55 U/L (7-40) H Alkaline Phosphatase 268 U/L (46-116) H Aspartate Amino Transferase (AST) 72 U/L (13-40) H Total Bilirubin 3.8 mg/dL (0.2-1.0) H HgA1c, TSH Test 12/14/24 13:37 Thyroid Stimulating Hormone (TSH) 3.28 uIU/mL (0.55-4.78) Urinalysis Test 12/13/24 22:05 Urine Color Colorless (Yellow) Urine Clarity Clear (Clear) Urine pH 5.5 (5.0-9.0) Urine Specific [place] 1.006 (1.001-1.035) Urine Protein Negative (Negative) Urine Ketones Negative (Negative) Urine Blood Negative /uL (Negative) Urine Nitrite Negative (Negative) Urine Bilirubin Negative (Negative) Urine Urobilinogen Normal mg/dL (Negative) Urine Leukocyte Esterase Negative /uL (Negative) Urine RBC None seen /hpf (0 - 3) Urine Microscopic WBC 1 /HPF (0-3) Urine Squamous Epithelial Cells None seen /hpf (<5) Urine Bacteria None seen /hpf (None Seen) Urine Glucose Normal mg/dL (Normal) Blood Gas Results Test 12/14/24 17:54 Arterial Blood pH 7.439 (7.350-7.450) FiO2 % 21.0 Labs and/or images reviewed: Labs reviewed by me, Image(s) reviewed by me Assessment/Plan Assessment/Plan Acute hypoxic respiratory failure: Oxygen by nasal cannula Acute on chronic congestive heart failure exacerbation, Julio Cesarix Tonya Watts Coreg, cardiology consult by Dr. Roland appreciated, echo 15 percent ejection fraction Interrogation of pacemaker done working well Electrolyte imbalance Transaminitis, ? Venous congestion,? Drug-induced Amphetamine abuse Noncompliance: Patient has not been using any medications for the last 2 months Drug Induced cardiomyopathy Plan discussed with: Patient My Orders Orders - RENU MONTERO MD Procedure Category Date Status Time Transfer Orders XFER 12/14/24 Transmitted 13:02 Date of Service: Dec 15, 2024 Billing Provider: RENU MONTERO MD Common Visit Codes: [id number] INP/OBS CARE(HIGH) RENU MONTERO MD Dec 15, 2024 12:07
[2024-12-15] MEDS: POTASSIUM CHL 20 Meq TABLET PO ONE (13:22)
--- NOTE | 2024-12-15 20:12 | DVHPN2 ---
Progress Note - Dictate Date Seen: Dec 15, 2024 Medical Necessity Reason Pt with a Central, PICC or Fol: No Subjective Patient was seen and evaluated in follow up. Patient reports feeling short of breath. HE is on 3 LPM NC K3.1, CA 8.3, Ammonia 56. Telemetry reviewed. vital signs Vital Sign Date Time Temp Pulse Resp B/P (MAP) Pulse Ox O2 Delivery O2 Flow Rate FiO2 12/15/24 17:15 107/76 12/15/24 13:00 97.3 75 18 97 97.3 12/15/24 07:57 Room Air* 0 21 Total Intake and Output 12/14/24 12/14/24 12/15/24 15:00 23:00 07:00 Intake Total 920 ml 360 ml Output Total 1150 ml 300 ml Balance -230 ml 60 ml medications Current Medications Medications Dose Ordered Sig/Yue Route Start Time Stop Time Status Last Admin Dose Admin Sacubitril/ Valsartan 1 tab BID PO 12/13/24 22:00 12/15/24 08:53 1 TAB Furosemide 40 mg BIDD IV 12/14/24 06:00 12/15/24 17:15 40 MG Empaglifozin 10 mg DAILY PO 12/14/24 10:00 12/15/24 08:53 10 MG Carvedilol 3.125 mg Q12HR PO 12/13/24 22:00 12/15/24 08:56 3.125 MG Aspirin 81 mg DAILY PO 12/14/24 10:00 12/15/24 08:53 81 MG Temazepam 15 mg QHSP PRN PO 12/13/24 20:00 12/14/24 01:50 15 MG Ondansetron HCl 4 mg Q4HP PRN IV 12/13/24 20:00 12/14/24 12:33 4 MG Nitroglycerin 0.4 mg Q5MINP PRN SL 12/13/24 20:00 Morphine Sulfate 2 mg Q30M PRN IV 12/13/24 20:00 Spironolactone 25 mg DAILY PO 12/15/24 10:00 12/15/24 08:56 25 MG Lactulose 60 ml BID PO 12/15/24 22:00 objective GENERAL: Alert and oriented x 3. No acute distress. Morbidly obese. EYES: PERRL, EOMI. Anicteric. HENT: Moist mucous membranes. LUNGS: Clear to auscultation bilaterally. CARDIOVASCULAR: Regular rate and rhythm. ABDOMEN: Large distended abdomen. EXTREMITIES: 4+ pitting edema. NEUROLOGIC: No focal neurological deficits. SKIN: Warm, dry. laboratory and microbiology Laboratory Tests 12/15/24 06:43 Test 12/15/24 06:43 Range/Units Serum Glucose 100 74-106 mg/dL Problem List Acute on chronic decompensated HFrEF, NYHA class III. 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 NSTEMI, likely type II secondary to above. Presence of AICD (Medtronic). Acute methamphetamine intoxication. Hypokalemia. Hypomagnesemia. Transaminitis. Obesity. Medical noncompliance. Assessment/Plan Continued all current supportive medical care. Aspirin. Coreg. Diuretics with Lasix. Morphine for pain management. Entresto. Additional plan as per the hospital course. Plan discussed with: Patient MCKAY DAY MD Dec 15, 2024 19:34
[2024-12-15] MEDS: LACTULOSE 20Gm/30ML SOLN PO SCH (20:34)
[2024-12-16] VITALS (8 sets, daily range): BP systolic 105–120; BP diastolic 61–89; PULSE 78–97; RESP 17–18; TEMP 95.6–98.2; O2SAT 91–100
--- NOTE | 2024-12-16 13:04 | DVHPN2 ---
Reviewed: Care Plan, H&P, Labs, Medications, Previous Orders, Radiology Changes from previous H/P or p: No Changes Objective Vitals Vital Signs Date Time Temp Pulse Resp B/P (MAP) Pulse Ox O2 Delivery O2 Flow Rate FiO2 12/16/24 11:55 80 122/83 12/16/24 09:00 97.9 18 91 97.9 12/16/24 08:15 Room Air* 0 21 Intake/Output Intake and Output 12/16/24 06:59 Intake Total 1705 ml Output Total 2250 ml Balance -545 ml Intake Oral 1705 ml Output Urine Total 1925 ml Urine/Stool Mix 325 ml # Voids 4 # Bowel Movements 1 Medications Current Medications Medications Dose Ordered Sig/Yue Route Start Time Stop Time Status Last Admin Dose Admin Sacubitril/ Valsartan 1 tab BID PO 12/13/24 22:00 12/16/24 11:54 1 TAB Furosemide 40 mg BIDD IV 12/14/24 06:00 12/16/24 05:11 40 MG Empaglifozin 10 mg DAILY PO 12/14/24 10:00 12/16/24 11:55 10 MG Carvedilol 3.125 mg Q12HR PO 12/13/24 22:00 12/16/24 11:55 3.125 MG Aspirin 81 mg DAILY PO 12/14/24 10:00 12/16/24 11:54 81 MG Temazepam 15 mg QHSP PRN PO 12/13/24 20:00 12/14/24 01:50 15 MG Ondansetron HCl 4 mg Q4HP PRN IV 12/13/24 20:00 12/14/24 12:33 4 MG Nitroglycerin 0.4 mg Q5MINP PRN SL 12/13/24 20:00 Morphine Sulfate 2 mg Q30M PRN IV 12/13/24 20:00 Spironolactone 25 mg DAILY PO 12/15/24 10:00 12/16/24 11:54 25 MG Lactulose 60 ml BID PO 12/15/24 22:00 12/16/24 11:53 60 ML Laboratory Results Laboratory Tests 12/15/24 06:43 Urinalysis Test 12/13/24 22:05 Urine Color Colorless (Yellow) Urine Clarity Clear (Clear) Urine pH 5.5 (5.0-9.0) Urine Specific [place] 1.006 (1.001-1.035) Urine Protein Negative (Negative) Urine Ketones Negative (Negative) Urine Blood Negative /uL (Negative) Urine Nitrite Negative (Negative) Urine Bilirubin Negative (Negative) Urine Urobilinogen Normal mg/dL (Negative) Urine Leukocyte Esterase Negative /uL (Negative) Urine RBC None seen /hpf (0 - 3) Urine Microscopic WBC 1 /HPF (0-3) Urine Squamous Epithelial Cells None seen /hpf (<5) Urine Bacteria None seen /hpf (None Seen) Urine Glucose Normal mg/dL (Normal) Labs and/or images reviewed: Labs reviewed by me, Image(s) reviewed by me Assessment/Plan Assessment/Plan Acute hypoxic respiratory failure: Oxygen by nasal cannula Acute on chronic congestive heart failure exacerbation, Naomi Landry, cardiology consult by Dr. Roland appreciated, echo 15 percent ejection fraction Interrogation of pacemaker done working well Electrolyte imbalance Transaminitis, ? Venous congestion,? Drug-induced Amphetamine abuse Noncompliance: Patient has not been using any medications for the last 2 months Drug Induced cardiomyopathy Possible DC Tuesday ABG on room air ordered to see if he qualifies for home oxygen Plan discussed with: Patient Date of Service: Dec 16, 2024 Billing Provider: RENU MONTERO MD Common Visit Codes: [id number] INP/OBS CARE(HIGH) RENU MONTERO MD Dec 16, 2024 13:04
--- NOTE | 2024-12-16 23:21 | DVHPN2 ---
Progress Note - Dictate Date Seen: Dec 16, 2024 Medical Necessity Reason Pt with a Central, PICC or Fol: No Subjective Patient was seen and evaluated in follow up. No overnight events. Patient is resting in bed. Interrogation of pacemaker done working well. Telemetry reviewed. vital signs Vital Sign Date Time Temp Pulse Resp B/P (MAP) Pulse Ox O2 Delivery O2 Flow Rate FiO2 12/16/24 11:55 80 122/83 12/16/24 09:00 97.9 18 91 97.9 12/16/24 08:15 Room Air* 0 21 Total Intake and Output 12/15/24 12/15/24 12/16/24 15:00 23:00 07:00 Intake Total 1105 ml 600 ml Output Total 1350 ml 900 ml Balance -245 ml -300 ml medications Current Medications Medications Dose Ordered Sig/Yue Route Start Time Stop Time Status Last Admin Dose Admin Sacubitril/ Valsartan 1 tab BID PO 12/13/24 22:00 12/16/24 11:54 1 TAB Furosemide 40 mg BIDD IV 12/14/24 06:00 12/16/24 05:11 40 MG Empaglifozin 10 mg DAILY PO 12/14/24 10:00 12/16/24 11:55 10 MG Carvedilol 3.125 mg Q12HR PO 12/13/24 22:00 12/16/24 11:55 3.125 MG Aspirin 81 mg DAILY PO 12/14/24 10:00 12/16/24 11:54 81 MG Temazepam 15 mg QHSP PRN PO 12/13/24 20:00 12/14/24 01:50 15 MG Ondansetron HCl 4 mg Q4HP PRN IV 12/13/24 20:00 12/14/24 12:33 4 MG Nitroglycerin 0.4 mg Q5MINP PRN SL 12/13/24 20:00 Morphine Sulfate 2 mg Q30M PRN IV 12/13/24 20:00 Spironolactone 25 mg DAILY PO 12/15/24 10:00 12/16/24 11:54 25 MG Lactulose 60 ml BID PO 12/15/24 22:00 12/16/24 11:53 60 ML objective GENERAL: Alert and oriented x 3. No acute distress. Morbidly obese. EYES: PERRL, EOMI. Anicteric. HENT: Moist mucous membranes. LUNGS: Clear to auscultation bilaterally. CARDIOVASCULAR: Regular rate and rhythm. ABDOMEN: Large distended abdomen. EXTREMITIES: 4+ pitting edema. NEUROLOGIC: No focal neurological deficits. SKIN: Warm, dry. laboratory and microbiology Laboratory Tests 12/15/24 06:43 Test 12/15/24 06:43 Range/Units Serum Glucose 100 74-106 mg/dL Problem List Acute on chronic decompensated HFrEF, NYHA class III. 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 NSTEMI, likely type II secondary to above. Presence of AICD (Medtronic). Acute methamphetamine intoxication. Hypokalemia. Hypomagnesemia. Transaminitis. Obesity. Medical noncompliance. Assessment/Plan Continued all current supportive medical care. Aspirin. Coreg. Diuretics with Lasix. Morphine for pain management. Entresto. Additional plan as per the hospital course. Plan discussed with: Patient MCKAY DAY MD Dec 16, 2024 14:10
[2024-12-17 05:00] VITALS: BP 133/92; PULSE 92; RESP 16; TEMP 98.4; O2SAT 100
[2024-12-17 08:00] VITALS: PULSE 93
[2024-12-17 08:38] LABS: Base Excess 6.3 mmol/L (-2.0-3.0)
[2024-12-17 09:00] VITALS: BP 141/90; PULSE 100; RESP 20; TEMP 97.7; O2SAT 98
[2024-12-17 12:46] VITALS: BP 106/69; PULSE 79; RESP 20; TEMP 98; O2SAT 99
--- NOTE | 2024-12-17 13:26 | DVHPN2 ---
Reviewed: Care Plan, H&P, Labs, Medications, Previous Orders, Radiology Changes from previous H/P or p: No Changes Objective Vitals Vital Signs Date Time Temp Pulse Resp B/P (MAP) Pulse Ox O2 Delivery O2 Flow Rate FiO2 12/17/24 12:46 98.0 79 20 106/69 (81) 99 98.0 12/17/24 08:00 Room Air* 0 21 Intake/Output Intake and Output 12/17/24 07:00 Intake Total 1214 ml Output Total 4430 ml Balance -3216 ml Intake Oral 1214 ml Output Urine Total 4430 ml # Bowel Movements 2 Medications Current Medications Medications Dose Ordered Sig/Yue Route Start Time Stop Time Status Last Admin Dose Admin Sacubitril/ Valsartan 1 tab BID PO 12/13/24 22:00 12/17/24 09:05 1 TAB Furosemide 40 mg BIDD IV 12/14/24 06:00 12/16/24 18:01 40 MG Empaglifozin 10 mg DAILY PO 12/14/24 10:00 12/17/24 09:06 10 MG Carvedilol 3.125 mg Q12HR PO 12/13/24 22:00 12/17/24 09:06 3.125 MG Aspirin 81 mg DAILY PO 12/14/24 10:00 12/17/24 09:05 81 MG Temazepam 15 mg QHSP PRN PO 12/13/24 20:00 12/14/24 01:50 15 MG Ondansetron HCl 4 mg Q4HP PRN IV 12/13/24 20:00 12/14/24 12:33 4 MG Nitroglycerin 0.4 mg Q5MINP PRN SL 12/13/24 20:00 Morphine Sulfate 2 mg Q30M PRN IV 12/13/24 20:00 Spironolactone 25 mg DAILY PO 12/15/24 10:00 12/17/24 09:05 25 MG Lactulose 60 ml BID PO 12/15/24 22:00 12/16/24 21:58 60 ML Laboratory Results Laboratory Tests 12/15/24 06:43 Urinalysis Test 12/13/24 22:05 Urine Color Colorless (Yellow) Urine Clarity Clear (Clear) Urine pH 5.5 (5.0-9.0) Urine Specific [place] 1.006 (1.001-1.035) Urine Protein Negative (Negative) Urine Ketones Negative (Negative) Urine Blood Negative /uL (Negative) Urine Nitrite Negative (Negative) Urine Bilirubin Negative (Negative) Urine Urobilinogen Normal mg/dL (Negative) Urine Leukocyte Esterase Negative /uL (Negative) Urine RBC None seen /hpf (0 - 3) Urine Microscopic WBC 1 /HPF (0-3) Urine Squamous Epithelial Cells None seen /hpf (<5) Urine Bacteria None seen /hpf (None Seen) Urine Glucose Normal mg/dL (Normal) Blood Gas Results Test 12/17/24 08:26 Arterial Blood pH 7.469 (7.350-7.450) FiO2 % 21.0 Labs and/or images reviewed: Labs reviewed by me, Image(s) reviewed by me Assessment/Plan Assessment/Plan Acute hypoxic respiratory failure: Oxygen by nasal cannula Acute on chronic congestive heart failure exacerbation, Lasix Jardiance Entresto Coreg, cardiology consult by Dr. Roland appreciated, echo 15 percent ejection fraction Interrogation of pacemaker done working well Electrolyte imbalance Transaminitis, ? Venous congestion,? Drug-induced Amphetamine abuse Noncompliance: Patient has not been using any medications for the last 2 months Drug Induced cardiomyopathy Possible DC Tuesday ABG on room air shows patient qualifies for home oxygen: Social service consult placed Plan discussed with: Patient Date of Service: Dec 17, 2024 Billing Provider: RENU MONTERO MD Common Visit Codes: [id number] INP/OBS CARE(HIGH) RENU MONTERO MD Dec 17, 2024 13:26
[2024-12-17 16:42] VITALS: BP 124/80; PULSE 81; RESP 18; TEMP 97.9; O2SAT 99
[2024-12-17 20:10] LABS: Potassium 3.5 mmol/L (3.5-5.1); Sodium 137 mmol/L (136-145)
[2024-12-17 20:11] LABS: Anion Gap 9 (5-15); Carbon Dioxide 30 mmol/L (20-31)
[2024-12-17 20:16] LABS: BUN/Creatinine Ratio 17.9 (10.0-20.0); Blood Urea Nitrogen 15 mg/dL (9-23); Calcium 8.6 mg/dL (8.7-10.4); Chloride 98 mmol/L (98-107)
[2024-12-17 20:22] LABS: Glucose 137 mg/dL (74-106)
[2024-12-17 21:00] VITALS: BP 118/74; PULSE 90; RESP 19; TEMP 97.8; O2SAT 98
--- NOTE | 2024-12-17 21:43 | DVHPN2 ---
Progress Note - Dictate Date Seen: Dec 17, 2024 Medical Necessity Reason Pt with a Central, PICC or Fol: No Subjective Patient was seen and evaluated in follow up. Patient on supplemental O2. Patient does not voice any complaints. VS are stable. Telemetry reviewed. vital signs Vital Sign Date Time Temp Pulse Resp B/P (MAP) Pulse Ox O2 Delivery O2 Flow Rate FiO2 12/17/24 18:47 129/89 12/17/24 16:42 97.9 81 18 99 97.9 12/17/24 08:00 Room Air* 0 21 Total Intake and Output 12/16/24 12/16/24 12/17/24 15:00 23:00 07:00 Intake Total 240 ml 914 ml 60 ml Output Total 2000 ml 2430 ml Balance 240 ml -1086 ml -2370 ml medications Current Medications Medications Dose Ordered Sig/Yue Route Start Time Stop Time Status Last Admin Dose Admin Sacubitril/ Valsartan 1 tab BID PO 12/13/24 22:00 12/17/24 09:05 1 TAB Furosemide 40 mg BIDD IV 12/14/24 06:00 12/17/24 18:47 40 MG Empaglifozin 10 mg DAILY PO 12/14/24 10:00 12/17/24 09:06 10 MG Carvedilol 3.125 mg Q12HR PO 12/13/24 22:00 12/17/24 09:06 3.125 MG Aspirin 81 mg DAILY PO 12/14/24 10:00 12/17/24 09:05 81 MG Temazepam 15 mg QHSP PRN PO 12/13/24 20:00 12/14/24 01:50 15 MG Ondansetron HCl 4 mg Q4HP PRN IV 12/13/24 20:00 12/14/24 12:33 4 MG Nitroglycerin 0.4 mg Q5MINP PRN SL 12/13/24 20:00 Morphine Sulfate 2 mg Q30M PRN IV 12/13/24 20:00 Spironolactone 25 mg DAILY PO 12/15/24 10:00 12/17/24 09:05 25 MG Lactulose 60 ml BID PO 12/15/24 22:00 12/16/24 21:58 60 ML objective GENERAL: Alert and oriented x 3. No acute distress. Morbidly obese. EYES: PERRL, EOMI. Anicteric. HENT: Moist mucous membranes. LUNGS: Clear to auscultation bilaterally. CARDIOVASCULAR: Regular rate and rhythm. ABDOMEN: Large distended abdomen. EXTREMITIES: 4+ pitting edema. NEUROLOGIC: No focal neurological deficits. SKIN: Warm, dry. laboratory and microbiology Laboratory Tests 12/17/24 19:44 12/15/24 06:43 Test 12/17/24 19:44 Range/Units Serum Glucose 137 H 74-106 mg/dL Problem List Acute on chronic decompensated HFrEF, NYHA class III. 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 NSTEMI, likely type II secondary to above. Presence of AICD (Medtronic). Acute methamphetamine intoxication. Hypokalemia. Hypomagnesemia. Transaminitis. Obesity. Medical noncompliance. Assessment/Plan Continued all current supportive medical care. Aspirin. Coreg. Diuretics with Lasix. Morphine for pain management. Entresto. Additional plan as per the hospital course. Dietary Evaluation Review Recommendations by RD: Dietary education by RD Comments: 1) Continue cardiac diet 2) Refer to outpatient RD for weight management 3) Follow-up with cardiology 4) Follow-up with health social work professor r/t polysubstance abuse 5) Continue to monitor I&O, labs, and skin integrity Expected Outcomes/Goals: 1) appetite and labs to improve 2) gradual wt loss 3) f/u in 3-5 days Plan discussed with: Patient MCKAY DAY MD Dec 17, 2024 21:43
[2024-12-18 01:00] VITALS: BP 123/85; PULSE 99; RESP 20; TEMP 98.1; O2SAT 100
--- NOTE | 2024-12-18 15:24 | ECG ---
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
--- NOTE | 2024-12-19 08:14 | DVHDS2 ---
Discharge Summary Date of Admission Dec 13, 2024 at 19:51 Date of Discharge: Dec 18, 2024 Admitting Diagnosis SHORTNESS OF BREATH Wounds: None Labs/Diagnostic Data: Laboratory Results Test 12/17/24 19:44 12/17/24 08:26 12/15/24 06:43 12/14/24 17:54 Sodium Level 137 mmol/L (136-145) Potassium Level 3.5 mmol/L (3.5-5.1) Chloride Level 98 mmol/L (98-107) Carbon Dioxide Level 30 mmol/L (20-31) Anion Gap 9 (5-15) Blood Urea Nitrogen 15 mg/dL (9-23) Creatinine 0.84 mg/dL (0.700-1.30) Glomerular Filtration Rate Calc 117 mL/min (>90) BUN/Creatinine Ratio 17.9 (10.0-20.0) Serum Glucose 137 mg/dL (74-106) Calcium Level 8.6 mg/dL (8.7-10.4) Blood Gas Specimen Type Arterial Blood Gas Sample Site Left radial Blood Gas Patient Temperature 37.0 Arterial Blood Date Drawn [id number] Arterial Blood pH 7.469 (7.350-7.450) Arterial Blood Partial Pressure CO2 43.4 mmHg (35.0-48.0) Arterial Blood Partial Pressure O2 52.2 mmHg (83.0-108.0) Arterial Blood HCO3 30.8 mmol/L (21.0-28.0) Arterial Blood Oxygen Saturation 86.2 % (94.0-98.0) Arterial Blood Base Excess 6.3 mmol/L (-2.0-3.0) Arterial Blood Oxyhemoglobin 84.9 % (94.0-98.0) Arterial Blood Carboxyhemoglobin 1.0 % (0.5-1.5) Arterial Blood Methemoglobin 0.5 % (0.0-1.5) Ronaldo Test Yes Blood Gas Total Hemoglobin 16.30 g/dL (13.5-17.5) Blood Gas Modality Room air FiO2 % 21.0 Blood Gas Critical Value Read Back Yes Blood Gas Notified Whom moy Guadarrama Blood Gas Notified Time [id number] Blood Gas Notified By Pig Casting Machine Operator juan de la cruz White Blood Count 7.8 10^3/uL (4.4-10.8) Red Blood Count 5.03 10^6/uL (4.5-5.90) Hemoglobin 15.5 g/dL (13.5-17.5) Hematocrit 46.8 % (41.0-53.0) Mean Corpuscular Volume 92.9 fL (80.0-100.0) Mean Corpuscular Hemoglobin 30.7 pg (28.0-32.0) Mean Corpuscular Hemoglobin Concent 33.1 g/dL (32.0-36.0) Red Cell Distribution Width 16.4 % (11.8-14.3) Platelet Count 261 10^3/uL (140-450) Mean Platelet Volume 8.4 fL (6.9-10.8) Neutrophils (%) (Auto) 70.4 % (37.0-80.0) Lymphocytes (%) (Auto) 16.9 % (10.0-50.0) Monocytes (%) (Auto) 9.3 % (0.0-12.0) Eosinophils (%) (Auto) 2.1 % (0.0-7.0) Basophils (%) (Auto) 1.3 % (0.0-2.0) Neutrophils # (Auto) 5.5 10 ^3/uL (1.6-8.6) Lymphocytes # (Auto) 1.3 10 ^3/uL (0.4-5.4) Monocytes # (Auto) 0.7 10 ^3/uL (0-1.3) Eosinophils # (Auto) 0.2 10 ^3/uL (0-0.8) Basophils # (Auto) 0.1 10 ^3/uL (0-0.2) Nucleated Red Blood Cells 0.1 % Magnesium Level 1.7 mg/dL (1.6-2.6) Ammonia 56 umol/L (11-32) Blood Gas Spontaneous Rate 18 Test 12/14/24 13:37 12/14/24 12:19 12/13/24 22:05 12/13/24 20:27 Total Bilirubin 3.8 mg/dL (0.2-1.0) Aspartate Amino Transferase (AST) 72 U/L (13-40) Alanine Aminotransferase (ALT) 55 U/L (7-40) Alkaline Phosphatase 268 U/L (46-116) Total Protein 6.6 g/dL (5.7-8.2) Albumin 3.4 g/dL (3.2-4.8) Triglycerides Level 55 mg/dL (< 150) Cholesterol Level 81 mg/dL (< 200) LDL Cholesterol 63 mg/dL (< 100) HDL Cholesterol 14 mg/dL (40-59) Thyroid Stimulating Hormone (TSH) 3.28 uIU/mL (0.55-4.78) POC Glucose 92 mg/dl (70-106) Urine Color Colorless (Yellow) Urine Clarity Clear (Clear) Urine pH 5.5 (5.0-9.0) Urine Specific [place] 1.006 (1.001-1.035) Urine Protein Negative (Negative) Urine Ketones Negative (Negative) Urine Blood Negative /uL (Negative) Urine Nitrite Negative (Negative) Urine Bilirubin Negative (Negative) Urine Urobilinogen Normal mg/dL (Negative) Urine Leukocyte Esterase Negative /uL (Negative) Urine RBC None seen /hpf (0 - 3) Urine Microscopic WBC 1 /HPF (0-3) Urine Squamous Epithelial Cells None seen /hpf (<5) Urine Bacteria None seen /hpf (None Seen) Urine Glucose Normal mg/dL (Normal) Urine Opiates Screen Neg (NEGATIVE) Urine Fentanyl Screen Neg (NEGATIVE) Urine Barbiturates Screen Neg (NEGATIVE) Urine Phencyclidine Screen Neg (NEGATIVE) Urine Amphetamines Screen Pos (NEGATIVE) Urine Benzodiazepines Screen Neg (NEGATIVE) Urine Cocaine Screen Neg (NEGATIVE) Urine Cannabinoids Screen Pos (NEGATIVE) Troponin I High Sensitivity 152 ng/L (</=54) Test 12/13/24 17:25 Direct Bilirubin 2.1 mg/dL (<0.3) B-Type Natriuretic Peptide 1001.41 pg/mL (0-100) Other Laboratory Tests 12/17/24 19:44 12/15/24 06:43 Brief Hx & Hospital Course: 34-year-old male with a history of drug-induced cardiomyopathy with the amphetamine abuse came in for shortness of breaths. Found to have acute exacerbation of chronic systolic congestive heart failure ejection fraction 15 percent seen by Cardiology Dr. Roland placed on Lasix and Jardiance Entresto and Coreg tested positive for amphetamine patient is noncompliant he has not been using any medication for the last two months per while awaiting stabilization patient decided to leave AMA and left AMA. Consequences and complications including possible explained to the patient he verbalized understanding and insistent on leaving AMA in my presence and in the presence of the RN. Left AMA. Consults/Reason for consult Cardiology Dr. Juaquin Roland Operations or Procedures Echocardiogram Condition at Discharge: Fair Final Diagnosis/Problems List Acute hypoxic respiratory failure: Oxygen by nasal cannula Acute on chronic congestive heart failure exacerbation, Naomi Davissto Coreg, cardiology consult by Dr. Roland appreciated, echo 15 percent ejection fraction Interrogation of pacemaker done working well Electrolyte imbalance Transaminitis, ? Venous congestion,? Drug-induced Amphetamine abuse Noncompliance: Patient has not been using any medications for the last 2 months Drug Induced cardiomyopathy Discharge Disposition: Acute Care Facility Discharge Instruct/Medications Diet comment: Not applicable Patient left AMA Activity comment: Not applicable Patient left AMA Follow Up/Referral: Not applicable Patient left AMA Medications: Not applicable Patient left AMA Scheduled Amoxicillin Trihydrate (Amoxicillin), 500 MG PO TID Carvedilol (Carvedilol), 1 TAB PO BID, (Reported) Uxnfyovcnab-Iijxaulyqdma-Fqvwc (Trelegy Ellipta 100-62.5-25 Mcg/INH), 1 PUFF PO DAILYPRN, (Reported) Furosemide (Furosemide), 1 TAB PO BID, (Reported) Potassium Chloride (Klor-Con 8), 1 TAB PO BID, (Reported) Sacubitril-Valsartan (Entresto 24-26 mg), 1 TAB PO BID, (Reported) 39 (Time taken for discharge summary 39 minutes) Discharge Statement: "Patient was advised to return to the ER or call 911 if any headaches, dizziness, shortness of breath, chest pain, abdominal pain, bleeding, fevers, or worsening of medical condition. Patient was counseled about treatment plan, medications, possible side effects, patientverbalized understanding. All questions were answered to the best of my ability. This discharge took greater then 30 minutes in planning, reviewing documentation, counseling the patient, and discussing with other team members." ASSESSMENT ASSESSMENT Hospital Course Left AMA Assessment Date of Service: Dec 19, 2024 Billing Provider: RENU MONTERO MD Common Visit Codes: [id number] DISCH DAY >30min RENU MONTERO MD Dec 19, 2024 08:14
== END 2024-12-18 12:30 | disposition left against medical advice (07) | DRG 133 ==
LOC: ER 17:00 → OVERFLOW 19:51 → TELE-WESTW 23:00
PROVIDERS: ADMIT Family Medicine; ATTEND Family Medicine
PROC: 4B02XSZ Measurement of Cardiac Pacemaker, External Approach (ICD-10-PCS; principal; 2024-12-14)
DX: J96.01 Acute respiratory failure with hypoxia (principal); I50.23 Acute on chronic systolic (congestive) heart failure; I21.A1 Myocardial infarction type 2; I42.7 Cardiomyopathy due to drug and external agent; I11.0 Hypertensive heart disease with heart failure; F15.129 Other stimulant abuse with intoxication, unspecified; E87.6 Hypokalemia; E66.9 Obesity, unspecified; E83.42 Hypomagnesemia; F17.210 Nicotine dependence, cigarettes, uncomplicated; Z53.29 Procedure and treatment not carried out because of patient's decision for other reasons; R74.01 Elevation of levels of liver transaminase levels; I45.10 Unspecified right bundle-branch block; T43.625A Adverse effect of amphetamines, initial encounter; Z91.199 Patient's noncompliance with other medical treatment and regimen due to unspecified reason; Z95.810 Presence of automatic (implantable) cardiac defibrillator; Z68.36 Body mass index [BMI] 36.0-36.9, adult; Y92.89 Other specified places as the place of occurrence of the external cause
CPT/HCPCS: 36415; 36600; 71045; 76705; 80048; 80053; 80061; 80076; 80307; 81001; 82140; 82805; 82962; 83735; 83880; 84132; 84443; 84484; 85025; 93005; 93306; 93970; 96374; 99291; G0378; J2405; J3480